=== PATIENT | male | born 1965 | race African-American/Black ===

== ENCOUNTER 2019-08-16 12:45 | Observation (INO) ==
[2019-08-16] MEDS ORDERED: Albuterol 2.5 MG/3 ML NEBULIZER IH PRN (13:06)
[2019-08-16] MEDS ORDERED: CeFAZolin Syr 2,000MG/20 ML 2,000 MG/20 ML SYRINGE IVPB ONE (13:06)
[2019-08-16] MEDS ORDERED: Ringers Solution, Lactated 1,000 ML IVC SCH ×2 (13:15→19:17)
[2019-08-16] MEDS ORDERED: *HR* Midazolam HCl 2 MG/2 ML VIAL IVP PRN (14:23)
[2019-08-16] MEDS ORDERED: *HR* OxyCODONE Immed Rel 5 MG TABLET PO PRN (14:23)
[2019-08-16] MEDS ORDERED: *HR* FentaNYL (PF) 100 MCG/2 ML VIAL IVP PRN (14:23)
[2019-08-16] MEDS ORDERED: *HR* HYDROmorphone (PF) 1 MG/ML SYRINGE IVP PRN (14:23)
[2019-08-16] MEDS ORDERED: diazePAM 5 MG TABLET PO ONE (14:23)
[2019-08-16] MEDS ORDERED: *HR* Meperidine 25 MG/ML SYRINGE IVP PRN (14:23)
[2019-08-16] MEDS ORDERED: *HR* Promethazine 25 MG/ML VIAL IVP PRN ×2 (14:23→19:17)
[2019-08-16] MEDS ORDERED: Famotidine 20 MG/2 ML VIAL IVP ONE (14:23)
[2019-08-16] MEDS ORDERED: Ondansetron ODT 4 MG TAB.RAPDIS SL ONE (14:23)
[2019-08-16] MEDS ORDERED: Acetaminophen IV 1,000 MG/100 ML INFUS..BTL IVPB ONE (14:23)
[2019-08-16] MEDS ORDERED: Total Joint Mixture (50 ml) IR ONE (14:55)
[2019-08-16] MEDS ORDERED: Ethanol\\Acetic Acid\\Na Ace\\Ben 1,000 ML IRRIG.SOLN IR ONE (15:53)
[2019-08-16] MEDS ORDERED: *HR* FentaNYL (PF) 100 MCG/2 ML VIAL ONE (16:23)
[2019-08-16] MEDS ORDERED: *HR* Midazolam HCl 5 MG/5 ML VIAL IVP ONE (16:23)
[2019-08-16] MEDS ORDERED: *HR* Propofol 200 MG/20 ML VIAL IVP ONE (16:24)
[2019-08-16] MEDS ORDERED: ROPIVACAINE/PF/NS 0.25% 1 EACH SYRINGE INTRAART ONE (16:28)
[2019-08-16] MEDS ORDERED: Propofol 500 MG/50 ML INFUS..BTL ONE (16:52)
[2019-08-16] MEDS ORDERED: Tranexamic Acid 1,000 MG/10 ML VIAL ONE (16:56)
[2019-08-16] MEDS ORDERED: Ondansetron 4 MG/2 ML VIAL ONE (17:20)
[2019-08-16 18:38] LABS: Hematocrit 39.7 % (37.5-50.1)
[2019-08-16] MEDS ORDERED: Naloxone 0.4 MG/ML INJ IVP PRN (19:17)
[2019-08-16] MEDS ORDERED: Temazepam 15 MG CAPSULE PO PRN (19:17)
[2019-08-16] MEDS ORDERED: MOM Conc 10 ML UD.LIQ PO PRN (19:17)
[2019-08-16] MEDS ORDERED: traMADol 50 MG TABLET PO PRN (19:17)
[2019-08-16] MEDS ORDERED: ceFAZolin 3,000 MG in 0.9 % Sodium Chloride 100 ML IVPB SCH (19:17)
[2019-08-16] MEDS ORDERED: Sennosides 8.6 MG TABLET PO PRN (19:17)
[2019-08-16] MEDS ORDERED: Ondansetron 4 MG/2 ML VIAL IVP PRN (19:17)
[2019-08-16] MEDS: Topiramate 100 MG TABLET PO SCH (20:17)
[2019-08-16] MEDS: *HR* OxyCODONE Immed Rel 5 MG TABLET PO PRN (20:17)
[2019-08-16] MEDS: *HR* FentaNYL PATCH 12 MCG PATCH TD SCH (20:17)
[2019-08-16] MEDS: Ascorbic Acid 500 MG TABLET PO SCH (20:18)
[2019-08-16] MEDS: HYDROcodone BIT/Homatropine 5 MG TABLET PO PRN (22:10)
[2019-08-16] MEDS: traZODone 50 MG TABLET PO SCH (23:09)
[2019-08-16] MEDS ORDERED: BuPROPion XL (24 HR) 150 MG TABLET PO SCH (23:45)
[2019-08-17] MEDS: ceFAZolin 3,000 MG in 0.9 % Sodium Chloride 100 ML IVPB SCH ×2 (00:15→09:24)
[2019-08-17] MEDS: *HR* OxyCODONE Immed Rel 5 MG TABLET PO PRN ×5 (03:10→22:15)
[2019-08-17 05:32] LABS: Basophils % 0.1 %; Hematocrit 38.6 % (37.5-50.1); Hemoglobin 12.5 g/dL (12.9-16.9); Immature Granulocytes % 0.5 % (0-4); Lymphocytes % 7.1 %; Mean Corpuscular HGB Conc 32.4 g/dL (31.6-35.5); Mean Corpuscular Hemoglobin 31.2 pg (28.0-33.3); Mean Corpuscular Volume 96.3 fL (83.0-100.0); Mean Platelet Volume 12.1 fL (9.4-12.4); Monocytes # 0.9 K/mcL (0.0-1.3); Monocytes % 5.9 %; Neutrophils # 12.5 K/mcL (1.6-8.9); Platelet Count 166 K/mcL (140-400); Red Blood Count 4.01 M/mcL (4.19-5.50); Red Cell Distribution Width 13.3 % (11.5-14.5); Segmented Neutrophils % 86.4 %; White Blood Count 14.5 K/mcL (4.3-11.1)
[2019-08-17 05:51] LABS: BUN/Creatinine Ratio 20 (6-26); Blood Urea Nitrogen 16 mg/dL (6-20); Calcium 8.9 mg/dL (8.6-10.3); Carbon Dioxide 24 mEq/L (23-29); Chloride 108 mEq/L (98-107); Glucose 134 mg/dL (70-105); Osmolality,Calculated 293 (280-300); Potassium 4.1 mEq/L (3.5-5.1); Sodium 140 mEq/L (136-145); eGFR For African Americans > 60 (> 60); eGFR For Non-African Americans > 60 (> 60)
[2019-08-17] MEDS: *HR* Enoxaparin 30 MG/0.3 ML SYRINGE SQ SCH ×2 (06:32→17:34)
[2019-08-17] MEDS: HYDROcodone BIT/Homatropine 5 MG TABLET PO PRN ×4 (06:59→20:38)
[2019-08-17] MEDS: Ascorbic Acid 500 MG TABLET PO SCH ×2 (08:27→16:27)
[2019-08-17] MEDS: hydroCHLOROthiazide 25 MG TABLET PO SCH (08:27)
[2019-08-17] MEDS: Multivit/Ca/Min/Fe/FA 1 TAB TABLET PO SCH (08:27)
[2019-08-17] MEDS: Lactobacillus 1 EACH CAP.SPRINK PO SCH (08:27)
[2019-08-17] MEDS: Celecoxib 200 MG CAPSULE PO SCH (08:27)
[2019-08-17] MEDS: Topiramate 100 MG TABLET PO SCH ×2 (08:28→20:38)
[2019-08-17] MEDS: BuPROPion XL (24 HR) 150 MG TABLET PO SCH (08:28)
[2019-08-17] MEDS: amLODIPine 5 MG TABLET PO SCH (08:29)
[2019-08-17] MEDS ORDERED: NON-FORMULARY MEDICATION 1 EACH EACH (Multivitamin [One Daily] 1 TAB) PO SCH (09:00)
[2019-08-17] MEDS ORDERED: *HR* Enoxaparin 30 MG/0.3 ML SYRINGE SQ SCH (15:40)
[2019-08-17] MEDS: traZODone 50 MG TABLET PO SCH (22:15)
[2019-08-18] MEDS: HYDROcodone BIT/Homatropine 5 MG TABLET PO PRN ×5 (00:35→18:24)
[2019-08-18] MEDS: *HR* OxyCODONE Immed Rel 5 MG TABLET PO PRN ×5 (03:15→20:16)
[2019-08-18] MEDS: *HR* Enoxaparin 30 MG/0.3 ML SYRINGE SQ SCH ×2 (05:09→16:14)
[2019-08-18] MEDS: Celecoxib 200 MG CAPSULE PO SCH (07:21)
[2019-08-18] MEDS: hydroCHLOROthiazide 25 MG TABLET PO SCH (07:21)
[2019-08-18] MEDS: Lactobacillus 1 EACH CAP.SPRINK PO SCH (07:21)
[2019-08-18] MEDS: BuPROPion XL (24 HR) 150 MG TABLET PO SCH (07:21)
[2019-08-18] MEDS: Ascorbic Acid 500 MG TABLET PO SCH ×2 (07:21→16:13)
[2019-08-18] MEDS: Topiramate 100 MG TABLET PO SCH ×2 (07:22→20:16)
[2019-08-18] MEDS: Multivit/Ca/Min/Fe/FA 1 TAB TABLET PO SCH (07:22)
[2019-08-18] MEDS: amLODIPine 5 MG TABLET PO SCH (07:22)
[2019-08-18 14:43] LABS: Basophils % 0.3 %; Eosinophils # 0.1 K/mcL (0.0-0.6); Eosinophils % 0.7 %; Hematocrit 39.9 % (37.5-50.1); Hemoglobin 12.8 g/dL (12.9-16.9); Immature Granulocytes % 0.8 % (0-4); Lymphocytes # 1.8 K/mcL (0.6-4.6); Lymphocytes % 13.8 %; Mean Corpuscular HGB Conc 32.1 g/dL (31.6-35.5); Mean Corpuscular Hemoglobin 31.1 pg (28.0-33.3); Mean Corpuscular Volume 97.1 fL (83.0-100.0); Mean Platelet Volume 12.1 fL (9.4-12.4); Monocytes # 1.2 K/mcL (0.0-1.3); Monocytes % 9.1 %; Platelet Count 177 K/mcL (140-400); Red Blood Count 4.11 M/mcL (4.19-5.50); Red Cell Distribution Width 13.5 % (11.5-14.5); Segmented Neutrophils % 75.3 %; White Blood Count 13.2 K/mcL (4.3-11.1)
[2019-08-18 15:06] LABS: BUN/Creatinine Ratio 16 (6-26); Blood Urea Nitrogen 12 mg/dL (6-20); Calcium 8.8 mg/dL (8.6-10.3); Carbon Dioxide 27 mEq/L (23-29); Chloride 101 mEq/L (98-107); Glucose 116 mg/dL (70-105); Osmolality,Calculated 281 (280-300); Potassium 3.7 mEq/L (3.5-5.1); Sodium 135 mEq/L (136-145); eGFR For African Americans > 60 (> 60); eGFR For Non-African Americans > 60 (> 60)
[2019-08-19] MEDS: traZODone 50 MG TABLET PO SCH ×2 (00:29→22:20)
[2019-08-19] MEDS: *HR* OxyCODONE Immed Rel 5 MG TABLET PO PRN ×5 (00:29→20:04)
[2019-08-19] MEDS: HYDROcodone BIT/Homatropine 5 MG TABLET PO PRN ×5 (01:27→21:09)
[2019-08-19] MEDS: *HR* Enoxaparin 30 MG/0.3 ML SYRINGE SQ SCH ×2 (05:29→16:37)
[2019-08-19 05:51] LABS: Hematocrit 38.7 % (37.5-50.1); Hemoglobin 13.2 g/dL (12.9-16.9); Mean Corpuscular HGB Conc 34.1 g/dL (31.6-35.5); Mean Corpuscular Hemoglobin 31.7 pg (28.0-33.3); Mean Corpuscular Volume 92.8 fL (83.0-100.0); Mean Platelet Volume 11.4 fL (9.4-12.4); Platelet Count 178 K/mcL (140-400); Red Blood Count 4.17 M/mcL (4.19-5.50); Red Cell Distribution Width 13.5 % (11.5-14.5); White Blood Count 13.5 K/mcL (4.3-11.1)
[2019-08-19 06:13] LABS: BUN/Creatinine Ratio 15 (6-26); Blood Urea Nitrogen 12 mg/dL (6-20); Calcium 9.2 mg/dL (8.6-10.3); Carbon Dioxide 27 mEq/L (23-29); Chloride 104 mEq/L (98-107); Glucose 113 mg/dL (70-105); Osmolality,Calculated 287 (280-300); Potassium 4.2 mEq/L (3.5-5.1); Sodium 138 mEq/L (136-145); eGFR For African Americans > 60 (> 60); eGFR For Non-African Americans > 60 (> 60)
[2019-08-19] MEDS: Celecoxib 200 MG CAPSULE PO SCH (08:32)
[2019-08-19] MEDS: Topiramate 100 MG TABLET PO SCH ×2 (08:32→20:04)
[2019-08-19] MEDS: Lactobacillus 1 EACH CAP.SPRINK PO SCH (08:33)
[2019-08-19] MEDS: hydroCHLOROthiazide 25 MG TABLET PO SCH (08:33)
[2019-08-19] MEDS: Ascorbic Acid 500 MG TABLET PO SCH ×2 (08:33→16:36)
[2019-08-19] MEDS: BuPROPion XL (24 HR) 150 MG TABLET PO SCH (08:33)
[2019-08-19] MEDS: Multivit/Ca/Min/Fe/FA 1 TAB TABLET PO SCH (08:33)
[2019-08-19] MEDS: amLODIPine 5 MG TABLET PO SCH (08:34)
[2019-08-19] MEDS: *HR* FentaNYL PATCH 12 MCG PATCH TD SCH (20:05)
[2019-08-20] MEDS: *HR* OxyCODONE Immed Rel 5 MG TABLET PO PRN ×5 (00:26→19:58)
[2019-08-20 04:19] LABS: Hematocrit 39.3 % (37.5-50.1); Hemoglobin 12.6 g/dL (12.9-16.9); Mean Corpuscular HGB Conc 32.1 g/dL (31.6-35.5); Mean Corpuscular Hemoglobin 31.1 pg (28.0-33.3); Mean Platelet Volume 11.4 fL (9.4-12.4); Platelet Count 189 K/mcL (140-400); Red Blood Count 4.05 M/mcL (4.19-5.50); Red Cell Distribution Width 13.6 % (11.5-14.5); White Blood Count 14.6 K/mcL (4.3-11.1)
[2019-08-20 04:38] LABS: BUN/Creatinine Ratio 17 (6-26); Blood Urea Nitrogen 16 mg/dL (6-20); Calcium 9.2 mg/dL (8.6-10.3); Carbon Dioxide 27 mEq/L (23-29); Chloride 104 mEq/L (98-107); Glucose 122 mg/dL (70-105); Osmolality,Calculated 290 (280-300); Potassium 4.3 mEq/L (3.5-5.1); Sodium 139 mEq/L (136-145); eGFR For African Americans > 60 (> 60); eGFR For Non-African Americans > 60 (> 60)
[2019-08-20] MEDS: *HR* Enoxaparin 30 MG/0.3 ML SYRINGE SQ SCH ×2 (05:16→17:27)
[2019-08-20] MEDS: BuPROPion XL (24 HR) 150 MG TABLET PO SCH (07:34)
[2019-08-20] MEDS: hydroCHLOROthiazide 25 MG TABLET PO SCH (07:34)
[2019-08-20] MEDS: Multivit/Ca/Min/Fe/FA 1 TAB TABLET PO SCH (07:34)
[2019-08-20] MEDS: Ascorbic Acid 500 MG TABLET PO SCH ×2 (07:34→17:27)
[2019-08-20] MEDS: amLODIPine 5 MG TABLET PO SCH (07:35)
[2019-08-20] MEDS: Lactobacillus 1 EACH CAP.SPRINK PO SCH (07:35)
[2019-08-20] MEDS: Topiramate 100 MG TABLET PO SCH ×2 (07:35→22:09)
[2019-08-20] MEDS: Celecoxib 200 MG CAPSULE PO SCH (07:36)
[2019-08-20] MEDS ORDERED: Isovue-370 500 ML BOTTLE IVP ONE (10:55)
[2019-08-20] MEDS ORDERED: Ipratropium/Albuterol Neb 3 ML ONE (12:09)
[2019-08-20] MEDS: Ipratropium/Albuterol Neb 3 ML IH PRN ×2 (12:12→23:01)
[2019-08-20] MEDS: HYDROcodone BIT/Homatropine 5 MG TABLET PO PRN ×2 (13:50→22:09)
[2019-08-20 15:01] LABS: Basophils # 0.1 K/mcL (0.0-0.2); Basophils % 0.6 %; Eosinophils # 0.3 K/mcL (0.0-0.6); Eosinophils % 2.4 %; Hematocrit 39.2 % (37.5-50.1); Hemoglobin 12.5 g/dL (12.9-16.9); Immature Granulocytes % 1.9 % (0-4); Lymphocytes # 2.7 K/mcL (0.6-4.6); Lymphocytes % 19.7 %; Mean Corpuscular HGB Conc 31.9 g/dL (31.6-35.5); Mean Corpuscular Volume 97.3 fL (83.0-100.0); Mean Platelet Volume 11.3 fL (9.4-12.4); Monocytes # 1.7 K/mcL (0.0-1.3); Monocytes % 12.8 %; Neutrophils # 8.5 K/mcL (1.6-8.9); Platelet Count 183 K/mcL (140-400); Red Blood Count 4.03 M/mcL (4.19-5.50); Red Cell Distribution Width 13.4 % (11.5-14.5); Segmented Neutrophils % 62.6 %; White Blood Count 13.6 K/mcL (4.3-11.1)
[2019-08-20] MEDS: traZODone 50 MG TABLET PO SCH (23:16)
[2019-08-21] MEDS: *HR* Enoxaparin 30 MG/0.3 ML SYRINGE SQ SCH (04:03)
[2019-08-21] MEDS: *HR* OxyCODONE Immed Rel 5 MG TABLET PO PRN ×3 (04:03→12:07)
[2019-08-21] MEDS: Multivit/Ca/Min/Fe/FA 1 TAB TABLET PO SCH (08:04)
[2019-08-21] MEDS: Topiramate 100 MG TABLET PO SCH (08:04)
[2019-08-21] MEDS: Celecoxib 200 MG CAPSULE PO SCH (08:04)
[2019-08-21] MEDS: amLODIPine 5 MG TABLET PO SCH (08:04)
[2019-08-21] MEDS: Ascorbic Acid 500 MG TABLET PO SCH (08:04)
[2019-08-21] MEDS: BuPROPion XL (24 HR) 150 MG TABLET PO SCH (08:04)
[2019-08-21] MEDS: hydroCHLOROthiazide 25 MG TABLET PO SCH (08:04)
[2019-08-21] MEDS: Lactobacillus 1 EACH CAP.SPRINK PO SCH (08:04)
[2019-08-21 12:02] VITALS: BP 130/81
== END 2019-08-21 14:59 ==
LOC: SAMDAY 12:45 → 3NENU 12:45
PROVIDERS: ADMIT Orthopaedic Surgery; ATTEND Orthopaedic Surgery

== ENCOUNTER 2020-11-21 11:02 | Observation (INO) ==
[2020-11-21] MEDS ORDERED: *HR* HYDROmorphone PF 0.5 MG/0.5 ML SYRINGE IVP PRN (11:31)
[2020-11-21] MEDS ORDERED: Acetaminophen IV 1,000 MG/100 ML BAG IVPB ONE (11:31)
[2020-11-21] MEDS ORDERED: *HR* HYDROmorphone 2 MG TABLET PO PRN (11:31)
[2020-11-21] MEDS ORDERED: Famotidine 20 MG/2 ML VIAL IVP ONE (11:31)
[2020-11-21] MEDS ORDERED: *HR* OxyCODONE Immed Rel 5 MG TABLET PO PRN (11:31)
[2020-11-21] MEDS ORDERED: Pregabalin 75 MG CAPSULE PO ONE (11:31)
[2020-11-21] MEDS ORDERED: *HR* Labetalol 20 MG/4 ML SYRINGE IVP PRN (11:31)
[2020-11-21] MEDS ORDERED: ROPIVACAINE/PF/NS 0.25% 1 EACH SYRINGE INTRAART ONE (11:32)
[2020-11-21] MEDS ORDERED: *HR* Midazolam HCl 2 MG/2 ML VIAL ONE ×2 (11:32→12:49)
[2020-11-21] MEDS ORDERED: CeFAZolin Syr 2,000MG/20 ML 2,000 MG/20 ML SYRINGE IVPB ONE (11:44)
[2020-11-21] MEDS ORDERED: Ringers Solution, Lactated 1,000 ML IVC SCH (11:45)
[2020-11-21] MEDS ORDERED: Ethanol\\Acetic Acid\\Na Ace\\Ben 1,000 ML IRRIG.SOLN IR ONE (11:54)
[2020-11-21] MEDS ORDERED: Vancomycin 1,000 MG VIAL ONE (11:54)
[2020-11-21] MEDS ORDERED: *HR* Propofol 200 MG/20 ML VIAL IVP ONE ×3 (12:49→13:46)
[2020-11-21] MEDS ORDERED: Tranexamic Acid 1,000 MG/10 ML VIAL ONE ×2 (12:49→12:52)
[2020-11-21] MEDS ORDERED: Lidocaine -MPF 2% 2 ML VIAL ONE (12:49)
[2020-11-21] MEDS ORDERED: TOTAL JOINT MIXTURE (100ML) INTRAART ONE (13:05)
[2020-11-21] MEDS ORDERED: Povidone-Iodine 45 ML, Sodium Chloride IRRigation 1,000 ML IR ONE (13:05)
[2020-11-21 15:25] LABS: Hematocrit 43.4 % (37.5-50.1)
[2020-11-21 15:29] LABS: Hemoglobin 13.2 g/dL (12.9-16.9)
[2020-11-21] MEDS ORDERED: *HR* Promethazine 25 MG/ML VIAL IM PRN (15:57)
[2020-11-21] MEDS ORDERED: *HR* FentaNYL PATCH 12 MCG PATCH TD SCH (15:57)
[2020-11-21] MEDS ORDERED: Ondansetron 4 MG/2 ML VIAL IVP PRN (15:57)
[2020-11-21] MEDS ORDERED: Naloxone 0.4 MG/ML INJ IVP PRN (15:57)
[2020-11-21] MEDS ORDERED: Sennosides 8.6 MG TABLET PO PRN (15:57)
[2020-11-21] MEDS ORDERED: HYDROcodone BIT/Homatropine 5 MG TABLET PO PRN (15:57)
[2020-11-21] MEDS ORDERED: Dextrose Gel 15 GM/37.5 ML TUBE PO PRN ×2 (15:57)
[2020-11-21] MEDS ORDERED: *HR* Dextrose 50 % in Water (Vial) 50 ML VIAL IVP PRN (15:57)
[2020-11-21] MEDS ORDERED: MOM Conc 10 ML UD.LIQ PO PRN (15:57)
[2020-11-21] MEDS ORDERED: D5% in Water 1,000 ML IVC PRN (15:57)
[2020-11-21] MEDS: Insulin LISPRO 300 UNITS/3 ML VIAL SUBQ SCH ×3 (17:05→21:21)
[2020-11-21] MEDS: *HR* OxyCODONE Immed Rel 5 MG TABLET PO PRN ×2 (17:06→21:21)
[2020-11-21] MEDS: Ascorbic Acid 500 MG TABLET PO SCH (17:06)
[2020-11-21] MEDS: Ringers Solution, Lactated 1,000 ML IVC SCH (17:07)
[2020-11-21] MEDS ORDERED: *HR* FentaNYL PATCH 25 MCG PATCH TD SCH (19:00)
[2020-11-21] MEDS: CeFAZolin 2 GM/120 ML BAG IVPB SCH (21:20)
[2020-11-21] MEDS: traZODone 50 MG TABLET PO SCH (21:20)
[2020-11-21] MEDS: Topiramate 100 MG TABLET PO SCH (21:20)
[2020-11-21] MEDS ORDERED: Vancomycin 1,500 MG/265 ML IV.SOLN IVPB ONE (22:00)
[2020-11-22] MEDS: *HR* OxyCODONE Immed Rel 5 MG TABLET PO PRN ×5 (04:20→20:52)
[2020-11-22] MEDS: CeFAZolin 2 GM/120 ML BAG IVPB SCH (04:20)
[2020-11-22 05:05] LABS: BUN/Creatinine Ratio 25 (6-26); Blood Urea Nitrogen 19 mg/dL (6-20); Calcium 8.8 mg/dL (8.6-10.3); Carbon Dioxide 24 mEq/L (23-29); Chloride 111 mEq/L (98-107); Glucose 122 mg/dL (70-105); Osmolality,Calculated 294 (280-300); Potassium 4.4 mEq/L (3.5-5.1); Sodium 140 mEq/L (136-145); eGFR For African Americans > 60 (> 60); eGFR For Non-African Americans > 60 (> 60)
[2020-11-22 05:07] LABS: Basophils % 0.3 %; Eosinophils # 0.1 K/mcL (0.0-0.6); Eosinophils % 0.5 %; Hematocrit 38.6 % (37.5-50.1); Hemoglobin 12.4 g/dL (12.9-16.9); Immature Granulocytes % 0.3 % (0-4); Lymphocytes # 1.3 K/mcL (0.6-4.6); Mean Corpuscular HGB Conc 32.1 g/dL (31.6-35.5); Mean Corpuscular Hemoglobin 31.2 pg (28.0-33.3); Mean Corpuscular Volume 97.2 fL (83.0-100.0); Mean Platelet Volume 12.1 fL (9.4-12.4); Monocytes # 1.1 K/mcL (0.0-1.3); Monocytes % 7.6 %; Platelet Count 156 K/mcL (140-400); Red Blood Count 3.97 M/mcL (4.19-5.50); Red Cell Distribution Width 13.8 % (11.5-14.5); Segmented Neutrophils % 82.3 %
[2020-11-22 05:08] LABS: White Blood Count 14.6 K/mcL (4.3-11.1)
[2020-11-22] MEDS: OLANZapine 5 MG TAB.RAPDIS PO SCH (08:12)
[2020-11-22] MEDS: amLODIPine 5 MG TABLET PO SCH (08:12)
[2020-11-22] MEDS: hydroCHLOROthiazide 25 MG TABLET PO SCH (08:12)
[2020-11-22] MEDS: Multivit/Ca/Min/Fe/FA 1 TAB TABLET PO SCH (08:13)
[2020-11-22] MEDS: Topiramate 100 MG TABLET PO SCH ×2 (08:13→19:43)
[2020-11-22] MEDS: Celecoxib 200 MG CAPSULE PO SCH (08:13)
[2020-11-22] MEDS: Ascorbic Acid 500 MG TABLET PO SCH ×2 (08:13→16:42)
[2020-11-22] MEDS: Insulin LISPRO 300 UNITS/3 ML VIAL SUBQ SCH ×4 (08:14→19:39)
[2020-11-22] MEDS ORDERED: NON-FORMULARY MEDICATION 1 EACH EACH (Multivitamin [One Daily] 1 TAB) PO SCH (09:00)
[2020-11-22] MEDS: Ringers Solution, Lactated 1,000 ML IVC SCH ×2 (09:56→17:52)
[2020-11-22] MEDS: Aspirin Enteric Coated 81 MG Tablet PO SCH (11:46)
[2020-11-22] MEDS: traZODone 50 MG TABLET PO SCH (19:42)
[2020-11-23 00:44] LABS: Basophils % 0.3 %; Eosinophils # 0.3 K/mcL (0.0-0.6); Eosinophils % 2.4 %; Hematocrit 37.4 % (37.5-50.1); Immature Granulocytes % 0.5 % (0-4); Lymphocytes # 1.8 K/mcL (0.6-4.6); Mean Corpuscular HGB Conc 32.1 g/dL (31.6-35.5); Mean Corpuscular Hemoglobin 31.3 pg (28.0-33.3); Mean Corpuscular Volume 97.4 fL (83.0-100.0); Mean Platelet Volume 12.1 fL (9.4-12.4); Monocytes # 1.1 K/mcL (0.0-1.3); Monocytes % 10.1 %; Neutrophils # 7.9 K/mcL (1.6-8.9); Platelet Count 145 K/mcL (140-400); Red Blood Count 3.84 M/mcL (4.19-5.50); Red Cell Distribution Width 13.8 % (11.5-14.5); Segmented Neutrophils % 70.7 %; White Blood Count 11.1 K/mcL (4.3-11.1)
[2020-11-23 01:01] LABS: BUN/Creatinine Ratio 22 (6-26); Blood Urea Nitrogen 24 mg/dL (6-20); Calcium 8.6 mg/dL (8.6-10.3); Carbon Dioxide 25 mEq/L (23-29); Chloride 108 mEq/L (98-107); Glucose 92 mg/dL (70-105); Osmolality,Calculated 296 (280-300); Potassium 4.1 mEq/L (3.5-5.1); Sodium 141 mEq/L (136-145); eGFR For African Americans > 60 (> 60); eGFR For Non-African Americans > 60 (> 60)
[2020-11-23] MEDS: *HR* OxyCODONE Immed Rel 5 MG TABLET PO PRN ×3 (01:27→18:29)
[2020-11-23] MEDS: Insulin LISPRO 300 UNITS/3 ML VIAL SUBQ SCH ×4 (08:40→21:32)
[2020-11-23] MEDS: Aspirin Enteric Coated 81 MG Tablet PO SCH (09:00)
[2020-11-23] MEDS: Topiramate 100 MG TABLET PO SCH ×2 (09:01→21:31)
[2020-11-23] MEDS: Ascorbic Acid 500 MG TABLET PO SCH ×2 (09:01→17:30)
[2020-11-23] MEDS: amLODIPine 5 MG TABLET PO SCH (09:01)
[2020-11-23] MEDS: Celecoxib 200 MG CAPSULE PO SCH (09:01)
[2020-11-23] MEDS: Multivit/Ca/Min/Fe/FA 1 TAB TABLET PO SCH (09:01)
[2020-11-23] MEDS: hydroCHLOROthiazide 25 MG TABLET PO SCH (09:01)
[2020-11-23] MEDS: OLANZapine 5 MG TAB.RAPDIS PO SCH (09:01)
[2020-11-23] MEDS: Lactobacillus 1 EACH CAP.SPRINK PO SCH (21:31)
[2020-11-23] MEDS: traZODone 50 MG TABLET PO SCH (21:31)
[2020-11-24 04:48] VITALS: BP 108/52
[2020-11-24] MEDS: Celecoxib 200 MG CAPSULE PO SCH (07:37)
[2020-11-24] MEDS: hydroCHLOROthiazide 25 MG TABLET PO SCH (07:37)
[2020-11-24] MEDS: Multivit/Ca/Min/Fe/FA 1 TAB TABLET PO SCH (07:37)
[2020-11-24] MEDS: Lactobacillus 1 EACH CAP.SPRINK PO SCH (07:37)
[2020-11-24] MEDS: Aspirin Enteric Coated 81 MG Tablet PO SCH (07:37)
[2020-11-24] MEDS: OLANZapine 5 MG TAB.RAPDIS PO SCH (07:38)
[2020-11-24] MEDS: amLODIPine 5 MG TABLET PO SCH (07:38)
[2020-11-24] MEDS: Ascorbic Acid 500 MG TABLET PO SCH (07:38)
[2020-11-24] MEDS: Topiramate 100 MG TABLET PO SCH (07:39)
[2020-11-24] MEDS: Insulin LISPRO 300 UNITS/3 ML VIAL SUBQ SCH (07:39)
[2020-11-24] MEDS: *HR* OxyCODONE Immed Rel 5 MG TABLET PO PRN (11:20)
== END 2020-11-24 11:50 | disposition home health service (06) ==
LOC: 3NENU 11:02 → SAMDAY 11:02 → 2NENU 15:18 → 3NENU 15:22
PROVIDERS: ADMIT Orthopaedic Surgery; ATTEND Orthopaedic Surgery